=== PATIENT | female | born 1960 | race Caucasian/White ===

== ENCOUNTER 2020-03-22 13:50 | Outpatient (CLI) | payer BC, SELFPAY ==
--- NOTE | 2020-03-22 14:01 | XRR_ITS ---
PROCEDURE INFORMATION: Exam: XR Chest, 1 View Exam date and time: 03/22/2020 2:19 PM Age: 59 years old Clinical indication: Condition or disease; Lung condition and disease; Other: Asthmatic bronchitis; Dyspnea; Patient HX: Covid 19; Additional info: Dyspnea/asthmatic bronchitis/covid 19 TECHNIQUE: Imaging protocol: XR of the chest Views: 1 view. COMPARISON: No relevant prior studies available. FINDINGS: Lungs: Minimal opacity predominantly in the periphery of both lungs right more than left along with minimal interstitial thickening. No lobar consolidation. Pleural spaces: No pleural effusion. No pneumothorax. Heart/Mediastinum: No cardiomegaly. Bones/joints: No acute findings. Organs: Cholecystectomy. XR/XR chest 1V 62406 IMPRESSION: Bilateral pneumonia consistent with COVID-19 pneumonia.
== END 2020-03-22 13:51 | disposition home or self-care (01) ==
PROVIDERS: PCP Nurse Practitioner Family; Visit Provider Nurse Practitioner Family
DX: U07.1 COVID-19 (principal); R06.00 Dyspnea, unspecified; J45.909 Unspecified asthma, uncomplicated; J18.9 Pneumonia, unspecified organism
CPT/HCPCS: 71045

== ENCOUNTER 2020-04-02 11:12 | Emergency (ER) | payer BC, SELFPAY ==
[2020-04-02 11:28] VITALS: BP 150/84; PULSE 85; RESP 18; TEMP 36.6; O2SAT 97; BMI 28.1
--- NOTE | 2020-04-02 11:45 | XR_ITS ---
WS: [id number] PORTABLE CHEST HISTORY: chest pain COMPARISON: 03/22/2020 Focal area of pneumonitis persists in the RIGHT lower lobe. Resolution of the subsegmental pneumoniti s in the central lateral LEFT lung. No progression. No pleural effusion or pneumothorax. Cardiac size: Normal. Mediastinum/Aorta: Normal mediastinum. No osseous abnormality seen. XR/XR chest 1V portable [id number] IMPRESSION: 1. Persistent pneumonitis without change RIGHT lower lobe. 2. Resolution pneumonitis in the central LEFT lung.
--- NOTE | 2020-04-02 11:54 | W.ED.GENADLT ---
HPI - General Adult General: Chief complaint: General Medical Stated complaint: sent from PCP Time Seen by Provider: 04/02/20 11:40 History of Present Illness: HPI narrative: 59-year-old female presents to the emergency room with complaints of chest pain. She is nondiabetic was recently started on insulin. In February she was found to have Covid she is also thought to evidently have a bacterial pneumonia and completed a course of oral antibiotics 1 week ago. Chest discomfort radiates into the upper chest. She does not notice any worsening of the symptoms with exertion. It is slightly worse with deep breathing. Her blood sugars have been improving since she started on the insulin. She takes Levemir 8 units at night. Onset (ago): day(s) Location: chest Radiation: back Severity: moderate Quality: dull Pain Consistency: intermittent Relieving factors: none Exacerbating factors: none Associated symptoms: Reports chest pain and cough; Deny confusion, diaphoresis, decreased appetite, dyspnea, fevers/chills, headache(s), malaise, nausea, rash, palpitations, seizures, short of breath, syncope, vomiting or weakness Treatments prior to arrival: none Review of Systems Const: Denies: malaise or diaphoresis ENMT: Denies: throat pain, ear or mastoid pain, nasal discharge or nasal congestion Card: Reports: chest pain; Denies: palpitations or syncope Resp: Denies: dyspnea GI: Denies: nausea or vomiting : Denies: flank pain, difficulty voiding, dysuria, urinary frequency or urinary urgency Skin/Breast: Denies: rash Neuro: Denies: headache(s) or confusion Physical Exam Const: COMMON NORMALS: no acute distress GENERAL APPEARANCE: cooperative and comfortable ORIENTATION/CONSCIOUSNESS: Yes awake, Yes oriented to person, Yes oriented to place and Yes oriented to time HENMT: COMMON NORMALS: normocephalic, atraumatic and hearing grossly normal bilaterally HEAD & SCALP: normocephalic and atraumatic Neck/C-Spine: COMMON NORMALS: no JVD Resp: COMMON NORMALS: normal respiratory effort, No retractions, No use of accessory muscles and clear to auscultation bilaterally AUSCULTATION: clear to auscultation bilaterally Cardio: COMMON NORMALS: no JVD, regular rate, regular rhythm and No murmurs present (Cardio) RATE: regular rate RHYTHM: regular rhythm GI: COMMON NORMALS: Soft to palpation and No hepatosplenomegaly present AUSCULTATION: Yes normoactive bowel sounds PALPATION: Yes Soft to palpation, No Tenderness to palpation present (GI), No Guarding due to palpation present (GI) and Yes No hepatosplenomegaly present Extremity: COMMON NORMALS: normal to inspection, capillary refill normal, no clubbing, cyanosis or edema, no calf tenderness and no pedal edema Neuro: SENSORIUM/ORIENTATION: Yes oriented to person, Yes oriented to place and Yes oriented to time Skin: COMMON NORMALS: no rashes or lesions noted GENERAL SKIN EXAM: no rashes or lesions noted Course Vital Signs: Vital signs: Vital Signs Temperature 97.9 F 04/02/20 11:28 Pulse Rate 77 04/02/20 15:12 Respiratory Rate 16 04/02/20 15:12 Blood Pressure 112/62 04/02/20 15:12 Pulse Oximetry 98 04/02/20 15:12 MDM - General Adult MDM Narrative: Medical decision making narrative: X-ray continues to show little bit of pneumonitis think is residual from her Covid. Steroids would likely increase her blood sugars antibiotics are not likely to be helpful discussed this with her for now recommend just observation follow-up with primary care. After worsening problems return. Cardiac enzymes are negative. Lab Data: Labs: Lab Results 04/02/20 04/02/20 04/02/20 Range/Units 12:03 12:03 12:03 WBC 8.9 (4.0-10.0) 10^3/ uL RBC 4.36 (4.1-5.3) 10^6/u L Hgb 13.3 (11.5-15.3) g/dL Hct 39.4 (37.0-47.0) % MCV 90.4 (81-99) fL MCH 30.5 (28.0-34.0) pg MCHC 33.8 (30.0-36.0) g/dL RDW 12.9 (12.1-15.1) % Plt Count 247 (130-400) 10^3/c mm MPV 10.5 H (7.4-10.4) fL Neut % (Auto) 65.4 % Lymph % (Auto) 26.1 % [place] % (Auto) 5.5 % Eos % (Auto) 0.9 % Baso % (Auto) 0.2 % Neut # (Auto) 5.83 (1.8-7.7) 10^3/u L Lymph # (Auto) 2.3 (0.8-4.8) 10^3/u L [place] # (Auto) 0.5 (0.2-0.9) 10^3/u L Eos # (Auto) 0.1 (0.0-0.8) 10^3/u L Baso # (Auto) 0.0 (0.0-0.1) 10^3/u L Nucleated RBC % (a uto) 0 % Nucleated RBCs # 0.0 /100WBC Sodium 132 L (136-145) mmol/L Potassium 4.7 (3.5-5.1) mmol/L Chloride 98 (98-107) mmol/L Carbon Dioxide 24 (22-29) mmol/L Anion Gap 14.7 (5-19) BUN 22 (8-23) mg/dL Creatinine 0.6 (0.5-0.9) mg/dL GFR Calculation 102.0 (90-130) mL/min Glucose 214 H (65-115) mg/dL Calculated Osmolal ity 284 L (285-295) mOsm/k g Calcium 9.0 (8.5-10.5) mg/dL Total Bilirubin 0.2 (0.15-1.2) mg/dL AST 12 (0-32) U/L ALT 27 (0-33) U/L Alkaline Phosphata se 46 (35-105) IU/L Troponin T Baselin e 8 (0-10) ng/L Troponin T 120 Min [place] (0-10) ng/L Delta Troponin T (0-10) ABS# Total Protein 5.7 L (6.6-8.7) g/dL Albumin 3.5 (3.5-5.2) g/dL Globulin 2.2 (1.3-4.6) g/dL Serum Ketones (Negative) 04/02/20 04/02/20 Range/Units 12:03 14:00 WBC (4.0-10.0) 10^3/ uL RBC (4.1-5.3) 10^6/u L Hgb (11.5-15.3) g/dL Hct (37.0-47.0) % MCV (81-99) fL MCH (28.0-34.0) pg MCHC (30.0-36.0) g/dL RDW (12.1-15.1) % Plt Count (130-400) 10^3/c mm MPV (7.4-10.4) fL Neut % (Auto) % Lymph % (Auto) % [place] % (Auto) % Eos % (Auto) % Baso % (Auto) % Neut # (Auto) (1.8-7.7) 10^3/u L Lymph # (Auto) (0.8-4.8) 10^3/u L [place] # (Auto) (0.2-0.9) 10^3/u L Eos # (Auto) (0.0-0.8) 10^3/u L Baso # (Auto) (0.0-0.1) 10^3/u L Nucleated RBC % (a uto) % Nucleated RBCs # /100WBC Sodium (136-145) mmol/L Potassium (3.5-5.1) mmol/L Chloride (98-107) mmol/L Carbon Dioxide (22-29) mmol/L Anion Gap (5-19) BUN (8-23) mg/dL Creatinine (0.5-0.9) mg/dL GFR Calculation (90-130) mL/min Glucose (65-115) mg/dL Calculated Osmolal ity (285-295) mOsm/k g Calcium (8.5-10.5) mg/dL Total Bilirubin (0.15-1.2) mg/dL AST (0-32) U/L ALT (0-33) U/L Alkaline Phosphata se (35-105) IU/L Troponin T Baselin e (0-10) ng/L Troponin T 120 Min [place] 9.59 (0-10) ng/L Delta Troponin T 1.59 (0-10) ABS# Total Protein (6.6-8.7) g/dL Albumin (3.5-5.2) g/dL Globulin (1.3-4.6) g/dL Serum Ketones Negative (Negative) Discharge Plan Discharge Patient Disposition: Home Clinical Impression: Chest pain, pleuritic, Atypical chest pain Condition: Stable Prescriptions: No Action promethazine-DM 6.25-15 mg/5 mL Syrup 5 ml PO . DIRECTED PRN (Reason: Cough) RF: 0 albuterol sulfate 2.5 mg /3 mL (0.083 %) Solution For Nebulization 2.5 mg INHALATION QID PRN (Reason: Shortness Of Breath) RF: 0 glipizide 10 mg Tablet 20 mg PO BID@08,20 RF: 0 Aspir-81 81 mg Tablet,Delayed Release (Dr/Ec) 81 mg PO DAILY@08 RF: 0 Vitamin C 500 mg Tablet 1,000 mg PO DAILY RF: 0 levothyroxine 150 mcg Tablet 150 mcg PO DAILY@07 RF: 0 losartan 25 mg Tablet 25 mg PO DAILY@08 RF: 0 Singulair 10 mg Tablet 10 mg PO DAILY@20 RF: 0 allopurinol 300 mg Tablet 300 mg PO DAILY@08 RF: 0 zinc 50 mg Tablet 50 mg PO DAILY RF: 0 ProAir HFA 90 mcg/actuation Hfa Aerosol Inhaler 2 puff INHALATION Q4H PRN (Reason: Shortness Of Breath) RF: 0 indomethacin 75 mg Capsule, Extended Release 75 mg PO DAILY@20 RF: 0 Lexapro 10 mg Tablet 10 mg PO DAILY@20 RF: 0 Levemir FlexTouch U-100 Insuln 100 unit/mL (3 mL) insulin pen 8 unit SUBCUT DAILY@20 RF: 0 Vitamin D3 25 mcg (1,000 unit) Tablet 25 mcg PO DAILY RF: 0 budesonide 1 mg/2 mL Suspension For Nebulization See Rx Instructions .ROUTE .COMPLEX RF: 0 Janumet XR 100-1,000 mg Tablet, Er Multiphase 24 Hr 1 tab PO DAILY@08 RF: 0 Mucinex 600 mg Tablet Extended Release 12hr 600 mg PO BID RF: 0 Discharge Orders: Discharge ED (Routine); Ordered 04/02/20 Ordered By: Ziyad Okeefe Referrals: Hogan,DUANE Huitron [Primary Care Provider] - Discharge Diet: Usual diet Discharge Activity: Resume usual activity Patient Instructions: Opioid Safety Coding Level of Care Code ED Mortgage Loan Counselor for [employer] Fwd Exam Comprehensive
[2020-04-02 12:06] VITALS: BP 126/79; PULSE 81; RESP 19; O2SAT 95
[2020-04-02 12:13] LABS: Basophils % 0.2 %; Eosinophils # 0.1 10^3/uL (0.0-0.8); Eosinophils % 0.9 %; Hematocrit 39.4 % (37.0-47.0); Hemoglobin 13.3 g/dL (11.5-15.3); Lymphocytes # 2.3 10^3/uL (0.8-4.8); Lymphocytes % 26.1 %; Mean Corpuscular HGB Conc 33.8 g/dL (30.0-36.0); Mean Corpuscular Hemoglobin 30.5 pg (28.0-34.0); Mean Corpuscular Volume 90.4 fL (81-99); Mean Platelet Volume 10.5 fL (7.4-10.4); Monocytes # 0.5 10^3/uL (0.2-0.9); Monocytes % 5.5 %; Neutrophils # 5.83 10^3/uL (1.8-7.7); Neutrophils % 65.4 %; Nucleated Red Blood Cells % 0 %; Platelet Count 247 10^3/cmm (130-400); Red Blood Count 4.36 10^6/uL (4.1-5.3); Red Cell Distribution Width 12.9 % (12.1-15.1); White Blood Count 8.9 10^3/uL (4.0-10.0)
[2020-04-02 12:25] LABS: Ketone (Acetest) Serum Negative (Negative)
--- NOTE | 2020-04-02 12:33 | PC.PHAR ---
pt states she takes care of her own medications-pt states she has finished all the antibiotics and steroids that her pcp gave her on mar 22-pt states her pcp dced the [facility] when they gave her the levemir on 03/26/20-pt states her pcp told her on mar 22 to start a 81 mg aspirin daily-
[2020-04-02 12:34] LABS: Alanine Aminotransferase 27 U/L (0-33); Albumin Level 3.5 g/dL (3.5-5.2); Alkaline Phosphatase 46 IU/L (35-105); Anion Gap 14.7 (5-19); Aspartate Amino Transferase 12 U/L (0-32); Blood Urea Nitrogen 22 mg/dL (8-23); Carbon Dioxide 24 mmol/L (22-29); Chloride 98 mmol/L (98-107); Globulin 2.2 g/dL (1.3-4.6); Glucose 214 mg/dL (65-115); Osmolality Calculated 284 mOsm/kg (285-295); Potassium 4.7 mmol/L (3.5-5.1); Sodium 132 mmol/L (136-145); Total Bilirubin 0.2 mg/dL (0.15-1.2); Total Protein 5.7 g/dL (6.6-8.7)
[2020-04-02 12:36] LABS: Troponin(5th) Baseline 8 ng/L (0-10)
[2020-04-02 13:00] VITALS: BP 129/68; PULSE 68; RESP 19; O2SAT 97
--- NOTE | 2020-04-02 13:46 | ECG_ITS ---
[facility] Test Date: 2020-04-02 Pat Name: Smiley Cornejo Department: Room: Gender: Female Flexo Folder Gluer Operator: : 1960 Requested By: Ziyad Bernard Order Number: [id number] Reading MD: Alta Krause M.D. Measurements Intervals [place] Rate: 68 P: 16 MO: 130 QRS: 12 QRSD: 85 T: 56 QT: 349 QTc: 373 Interpretive Statements SINUS RHYTHM Compared to ECG 04/02/2020 11:48:43 T-wave abnormality no longer present Electronically Signed On 04-02-2020 16:14:49 ELECTRICAL PROSPECTING ENGINEER by Alta Krause M.D. [id number]
[2020-04-02 14:00] VITALS: BP 133/73; PULSE 79; RESP 16; O2SAT 97
--- NOTE | 2020-04-02 14:03 | PC.NURSE ---
EKG done at 1400 and shown to ER doctor
[2020-04-02 14:30] VITALS: BP 133/73; PULSE 73; RESP 14; O2SAT 97
[2020-04-02 14:41] LABS: Troponin 5 2HR 9.59 ng/L (0-10); Troponin 5 2HR Delta 1.59 ABS# (0-10)
[2020-04-02 15:12] VITALS: BP 112/62; PULSE 77; RESP 16; O2SAT 98
--- NOTE | 2020-04-02 17:46 | ECG_ITS ---
[facility] Test Date: 2020-04-02 Pat Name: Smiley Cornejo Department: Room: Gender: Female Network Professional: : 1960 Requested By: Ziyad Bernard Order Number: [id number] Sandra MD: Alta Krause M.D. Measurements Intervals [place] Rate: 76 P: 18 NV: 137 QRS: 19 QRSD: 85 T: 78 QT: 346 QTc: 391 Interpretive Statements SINUS RHYTHM NONSPECIFIC ST & T-WAVE ABNORMALITY No previous ECG available for comparison Electronically Signed On 04-02-2020 16:14:33 MAINTENANCE TECHNICIAN by Alta Krause M.D. [id number]
== END 2020-04-02 15:11 | disposition home or self-care (01) ==
PROVIDERS: Emergency Provider Family Medicine; PCP Nurse Practitioner Family
DX: R07.89 Other chest pain (principal); Z79.82 Long term (current) use of aspirin; Z79.4 Long term (current) use of insulin
CPT/HCPCS: 36415; 71045; 80053; 82009; 84484; 85025; 93005; 99283

== ENCOUNTER → 2024-05-01 09:04 | Outpatient (BNVA) | payer MEDICARE, SELFPAY | PROVIDERS: PCP Nurse Practitioner Family; Visit Provider Podiatrist Foot & Ankle Surgery | DX: E11.42 Type 2 diabetes mellitus with diabetic polyneuropathy (principal); L60.3 Nail dystrophy; G62.9 Polyneuropathy, unspecified; M19.071 Primary osteoarthritis, right ankle and foot; M20.41 Other hammer toe(s) (acquired), right foot; M20.42 Other hammer toe(s) (acquired), left foot; Z79.4 Long term (current) use of insulin | CPT/HCPCS: 11721; 99203 ==